=== PATIENT | female | born 1990 | race Caucasian/White ===

== ENCOUNTER 2020-01-25 18:26 | Outpatient (REF) | payer BC, SELFPAY ==
[2020-01-25 19:04] LABS: Anion Gap 12.8 mmol/L (3-11); BUN 15 mg/dL (7-18); CO2 23.2 mmol/L (21.0-32.0); CREATININE 0.86 mg/dL (0.55-1.02); Calcium 8.8 mg/dL (8.5-10.1); Calculated LDL 140 mg/dL (<100); Chloride 103 mmol/L (98-107); Cholesterol 198 mg/dL (<200); Glucose 94 mg/dL (74-106); HDL Cholesterol 45 mg/dL (40-60); Potassium 4.4 mmol/L (3.5-5.1); Sodium 139 mmol/L (136-145); Triglyceride 65 mg/dL (<150)
== END 2020-01-25 18:46 ==
LOC: NCHCN 18:26
PROVIDERS: Visit Provider Nurse Practitioner Family
DX: Z00.00 Encounter for general adult medical examination without abnormal findings (principal); Z13.220 Encounter for screening for lipoid disorders; Z13.228 Encounter for screening for other metabolic disorders
CPT/HCPCS: 80048; 80061

== ENCOUNTER 2020-12-21 17:54 | Outpatient (REF) | payer BC, SELFPAY ==
--- NOTE | 2020-12-21 15:00 | PAPFT_PTH ---
PATIENT: Kandice Durán LOC: [facility] U#:[id number] AGE/SX: 30/F ROOM: RE12/21/[address]: JOSE ANGEL Beard : 1990 BED: DIS: 12/21/2020 SPEC #: [id number] RECD: 12/21/20 18:15 STATUS: PENNY REQ #: [id number] CHERELLE: 12/21/20 15:[address]: Aleena Barksdale DEPT: [facility] Cytology RECD BY: Ny Ortiz ENTERED: 12/21/20 18:16 SP TYPE: PAPFT MICHAEL DR: Carla Local Tissues: 1 - CX/ENDOCX FOR PAP SMEARS Procedures: PAP THIN PREP/UVM Screening HPV DNA PROBE Comments: [id number]
== END 2020-12-21 17:55 | disposition home or self-care (01) ==
LOC: LBN 17:54
PROVIDERS: Visit Provider Nurse Practitioner Family
DX: Z12.4 Encounter for screening for malignant neoplasm of cervix (principal); Z11.51 Encounter for screening for human papillomavirus (HPV)
CPT/HCPCS: 88142; 87624

== ENCOUNTER 2021-11-15 03:02 | Outpatient (CLI) | payer BC, SELFPAY ==
[2021-11-15 15:49] LABS: TSH (W/Ref FT4) 2.35 uIU/mL (0.36-3.74)
[2021-11-15 21:23] LABS: Estradiol 359 pg/mL (See Note)
[2021-11-15 22:07] LABS: FSH 10.5 mIU/mL (See Note); LH 46.6 mIU/mL (See Note); Prolactin 19.5 ng/mL (See Table)
[2021-11-17 14:06] LABS: Antimullerian Hormone 5.5 ng/mL (0.58-8.1)
== END 2021-11-15 03:03 | disposition home or self-care (01) ==
LOC: LBO 03:04
PROVIDERS: Visit Provider Obstetrics & Gynecology Gynecology
DX: N93.9 Abnormal uterine and vaginal bleeding, unspecified (principal)
CPT/HCPCS: 36415; 82670; 83001; 83002; 83520; 84146; 84443

== ENCOUNTER → 2022-07-10 02:11 | Outpatient (CLI) | payer BC, SELFPAY ==
--- NOTE | 2022-07-10 08:30 | DI.US_ITS ---
Exam(s) US SONOHYSTEROGRAM EXAM: US SONOHYSTEROGRAM CLINICAL HISTORY: to assess fallopian tube patency,abnl uterine bleeding,desires , TECHNIQUE: Ultrasound performed using standard protocol. COMPARISON: No exams were available for comparison FINDINGS: Ultrasound guidance was provided for sonohysterogram performed by Dr. Cabrales. Please see Dr. Alex murguia's procedure note. IMPRESSION: DATA REPOSITORY:
--- NOTE | 2022-07-10 19:20 | OPPNE_ITS ---
Date of service: 07/10/22 Time of Service: 19:29 Procedure Note Date of procedure: 07/10/22 Procedure: Sonohysterogram Surgeon/Proceduralist/Physician: Lachelle Cabrales Procedure Indications: 32-year-old G0 female with primary infertility currently undergoing evaluation which includes tubal patency. I discussed with the patient the possibility of performing a sonohysterogram in place of a hysterosalpingogram to evaluate tubal patency. She was agreeable to the plan. Procedure Description: After verbal and written consent was obtained the procedure was performed in Diagnostic Imaging with the assistance of an enterprise analyst. Initial transvaginal ultrasound was performed with inspection of the uterus adnexa and pelvis. 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 With the septum occupying the fundal portion of the uterus. [place] speculum was placed in the vagina the cervix was cleansed with Betadine and the HSG catheter was inserted through through the cervix and the catheter balloon inflated. Instruments were then removed from the vagina and the endovaginal probe was then inserted and under direct visualization 20 cc of normal saline was instilled into the uterine cavity with excellent visualization the entire cavity. Once again imaging confirmed a bicornuate uterus. There is a small uterus and the posterior myometrium. After period of 5 minutes we were able to observe fluid within the pelvic cavity primarily along the anterior cul-de-sac and a small amount in the posterior cul-de-sac. The endovaginal probe was then removed, the HSG catheter bulb deflated and the catheter removed without difficulty. Patient sustained moderate to severe cramping during the procedure the cramping improved after the procedure was completed she was able to be discharged to home with instructions for follow-up.
== END ==
PROVIDERS: Visit Provider Obstetrics & Gynecology Gynecology
DX: N93.9 Abnormal uterine and vaginal bleeding, unspecified (principal); Z31.9 Encounter for procreative management, unspecified
CPT/HCPCS: 58340; 76831

== ENCOUNTER 2023-09-05 01:36 | Outpatient (CLI) | payer BC, SELFPAY ==
[2023-09-05 16:36] LABS: HCT 39.7 % (36.0-46.0); HGB 13.8 g/dL (11.2-15.7); MCH 32.7 pg (27.0-33.0); MCHC 34.8 % (32.0-36.0); MCV 94 fL (80-95); Platelet Count 265 10^3/uL (130-400); RBC 4.22 10^6/uL (3.93-5.22); RDW 11.6 % (11.7-14.6); RDW-SD 40.2 fL; WBC 9.47 10^3/uL (4.4-10.8)
[2023-09-05 17:04] LABS: ALT 109 U/L (14-59); AST 44 U/L (15-37); Albumin 3.9 g/dL (3.4-5.0); Alkaline Phosphatase 73 U/L (46-116); Anion Gap 8.9 mmol/L (3-11); BUN 13 mg/dL (7-18); Bilirubin, Total 0.5 mg/dL (0.2-1.0); CO2 24.1 mmol/L (21.0-32.0); Calcium 8.9 mg/dL (8.5-10.1); Chloride 101 mmol/L (98-107); Estimated GFR 75.34 (mL/min/1.73m2); Glucose 97 mg/dL (74-106); Potassium 3.7 mmol/L (3.5-5.1); Sodium 134 mmol/L (136-145); Total Protein 8.3 g/dL (6.4-8.2)
[2023-09-05 17:15] LABS: Vitamin D 25 Total 25.1 ng/mL (30-100)
[2023-09-05 17:23] LABS: FREE T4 0.86 ng/dL (0.76-1.46)
[2023-09-08 09:45] LABS: Prolactin 6.3 ng/mL (See Note)
[2023-09-08 10:35] LABS: Hepatitis B Surface Ag Negative (Negative)
[2023-09-08 11:00] LABS: Hepatitis C Ab w Rflx HCV PCR Negative (Negative)
[2023-09-08 11:07] LABS: HIV-1/2 Ag & Ab Screen Negative (Negative)
[2023-09-08 11:37] LABS: Rubella IgG Ab (UVM) Negative (See Note); Varicella IgG Antibody Positive (See Note)
[2023-09-08 19:11] LABS: Antimullerian Hormone 5.2 ng/mL (0.15-7.5)
[2023-09-09 22:02] LABS: Syphilis IgG w/Reflex Nonreactive (Nonreactive)
[2023-09-13 17:23] LABS: Testosterone, Free 0.77 ng/dL (<0.13-1.00); Testosterone, Total 28 ng/dL (8-60)
== END 2023-09-05 01:37 | disposition home or self-care (01) ==
PROVIDERS: Visit Provider Obstetrics & Gynecology Gynecology
DX: N91.5 Oligomenorrhea, unspecified; Z31.9 Encounter for procreative management, unspecified
CPT/HCPCS: 36415; 80053; 82306; 84402; 84403; 85027; 86787; 86803; 86850; 86900; 86901; 87340; 87389; 83520; 84146; 84439; 84443; 86762; 86780

== ENCOUNTER → 2023-09-17 01:22 | Outpatient (CLI) | payer BC, SELFPAY ==
--- NOTE | 2023-09-17 07:45 | DI.RAD_ITS ---
Exam(s) RF HYSTEROSALPINGOGRAM EXAM: RF HYSTEROSALPINGOGRAM CLINICAL HISTORY: preconceptual eval,bicornuate uterus,oligomenorrhea,procreative,Q51.3,n91.5 TECHNIQUE: 2D and realtime digital imaging was performed. CONTRAST MATERIAL: Water soluble contrast was administered. COMPARISON: No exams were available for comparison FINDINGS: Fluoroscopically provided by the radiologist during hysterosalpingogram. The actual hysterosalpingog alice was performed by the walking dragline oiler. Senior Actuarial Analyst placed an end hole balloon tipped catheter in th e lower uterine segment. Contrast was injected under fluoroscopic guidance images obtained. The uterus fills normally, with no evidence of obvious contour abnormality, filling defect, septum, s tricture, nor obvious mass. The bilateral uterine tubes are normal and patent with normal rapid spill age of contrast into the peritoneum. IMPRESSION: Patent bilateral fallopian tubes. RADIATION DOSE DELIVERED: marcel Salvador=30.1 mGy
[2023-09-17] MEDS: Omnipaque 350 MG/ML 50 ML BTL IJ (11:32)
== END ==
PROVIDERS: Visit Provider Obstetrics & Gynecology Gynecology
DX: N91.5 Oligomenorrhea, unspecified (principal); Q51.3 Bicornate uterus; Z31.9 Encounter for procreative management, unspecified
CPT/HCPCS: 74740; Q9967

== ENCOUNTER 2023-09-17 14:42 | Outpatient (CLI) | payer BC, SELFPAY ==
[2023-09-17 12:12] LABS: ALT 174 U/L (14-59); AST 84 U/L (15-37); Albumin 4.1 g/dL (3.4-5.0); Alkaline Phosphatase 72 U/L (46-116); BUN 9 mg/dL (7-18); Bilirubin, Total 0.6 mg/dL (0.2-1.0); Calcium 9.7 mg/dL (8.5-10.1); Chloride 103 mmol/L (98-107); Estimated GFR 75.34 (mL/min/1.73m2); Glucose 127 mg/dL (74-106); Potassium 4.4 mmol/L (3.5-5.1); Sodium 142 mmol/L (136-145); TSH (W/Ref FT4) 1.99 uIU/mL (0.36-3.74); Total Protein 8.6 g/dL (6.4-8.2)
== END 2023-09-17 14:43 | disposition home or self-care (01) ==
LOC: LBO 14:43
PROVIDERS: Visit Provider Obstetrics & Gynecology Gynecology
DX: R79.89 Other specified abnormal findings of blood chemistry (principal)
CPT/HCPCS: 36415; 80053; 84443

== ENCOUNTER 2023-12-03 01:31 | Outpatient (CLI) | payer BC, SELFPAY ==
[2023-12-03 15:27] LABS: Panorama Kit Sent via Fed Ex
[2023-12-03 15:31] LABS: Abs Immature Grans 0.05 10^3/uL (0.0-0.06); Absolute Basophil Count 0.01 10^3/uL (0.0-0.2); Absolute Eosinophil Count 0.03 10^3/uL (0.0-0.7); Absolute Lymphocyte Count 1.97 10^3/uL (1.2-3.4); Absolute Monocyte Count 0.47 10^3/uL (0.1-0.8); Basophils % 0.1; Eosinophils % 0.3; HCT 33.1 % (36.0-46.0); HGB 11.8 g/dL (11.2-15.7); Immature Grans % 0.5; Lymphocytes % 20.2; MCH 32.6 pg (27.0-33.0); MCHC 35.6 % (32.0-36.0); MCV 91 fL (80-95); MPV 9.9 fL (8.0-11.0); Monocytes % 4.8; Neutrophils % 74.1; Platelet Count 275 10^3/uL (130-400); RBC 3.62 10^6/uL (3.93-5.22); RDW 11.3 % (11.7-14.6); RDW-SD 37.9 fL; WBC 9.73 10^3/uL (4.4-10.8)
[2023-12-03 15:45] LABS: Glucose,1 Hr (Glucola) 150 mg/dL (80-140)
[2023-12-03 16:04] LABS: ALT 69 U/L (14-59); AST 38 U/L (15-37); Albumin 3.5 g/dL (3.4-5.0); Alkaline Phosphatase 73 U/L (46-116); Anion Gap 12.5 mmol/L (3-11); BUN 6 mg/dL (7-18); Bilirubin, Total 0.4 mg/dL (0.2-1.0); CO2 21.5 mmol/L (21.0-32.0); CREATININE 0.7 mg/dL (0.55-1.02); Calcium 9.3 mg/dL (8.5-10.1); Chloride 102 mmol/L (98-107); Estimated GFR 115.59 (mL/min/1.73m2); Glucose 147 mg/dL (74-106); Potassium 3.3 mmol/L (3.5-5.1); Sodium 136 mmol/L (136-145); TSH (W/Ref FT4) 2.83 uIU/mL (0.36-3.74)
[2023-12-04 09:12] LABS: Rubella IgG Ab (UVM) Negative (See Note); Varicella IgG Antibody Positive (See Note)
[2023-12-04 09:49] LABS: Hepatitis C Ab w Rflx HCV PCR Negative (Negative)
[2023-12-04 09:59] LABS: HIV-1/2 Ag & Ab Screen Negative (Negative)
[2023-12-04 11:17] LABS: Hepatitis B Surface Ag Negative (Negative)
[2023-12-05 13:08] LABS: Syphilis IgG w/Reflex Nonreactive (Nonreactive)
== END 2023-12-03 01:32 | disposition home or self-care (01) ==
LOC: LBO 01:31
PROVIDERS: Visit Provider Advanced Practice Midwife
DX: O09.511 Supervision of elderly primigravida, first trimester (principal); O26.891 Other specified pregnancy related conditions, first trimester; R79.89 Other specified abnormal findings of blood chemistry; Z36.89 Encounter for other specified antenatal screening; Z3A.11 11 weeks gestation of pregnancy
CPT/HCPCS: 36415; 80053; 82950; 86787; 86803; 86850; 86900; 86901; 87340; 87389; 84443; 85025; 86762; 86780

== ENCOUNTER 2023-12-03 15:08 | Outpatient (REF) | payer BC, SELFPAY ==
[2023-12-03 16:37] LABS: COMMENT (LAB VIEW ONLY) 15.16 mg/dL
[2023-12-03 16:56] LABS: PROTEIN < 6.0 mg/dL
== END 2023-12-03 15:09 | disposition home or self-care (01) ==
LOC: LBN 15:08
PROVIDERS: Visit Provider Advanced Practice Midwife
DX: O13.1 Gestational [pregnancy-induced] hypertension without significant proteinuria, first trimester (principal); O09.521 Supervision of elderly multigravida, first trimester; O26.891 Other specified pregnancy related conditions, first trimester; R51.9 Headache, unspecified; Z3A.11 11 weeks gestation of pregnancy
CPT/HCPCS: 82565; 84156; 87086

== ENCOUNTER 2023-12-09 03:14 | Outpatient (CLI) | payer BC, SELFPAY ==
[2023-12-09 08:48] LABS: Iron 104 ug/dL (50-170); Total Iron Binding Capacity 342 ug/dL (250-450); Transferrin Sat 30 % (15-50)
[2023-12-09 09:06] LABS: Glucose 1 Hour 158 mg/dL
[2023-12-09 11:14] LABS: Glucose 3 Hour 80 mg/dL
[2023-12-10 13:55] LABS: ANA Interpretation Positive (Negative); ANA Titer Pattern 1:320 Speckled
[2023-12-11 12:17] LABS: Smooth Muscle Ab Screen Negative (Negative)
== END 2023-12-09 03:15 | disposition home or self-care (01) ==
PROVIDERS: Obstetrics & Gynecology Gynecology; Visit Provider Advanced Practice Midwife
DX: Z34.91 Encounter for supervision of normal pregnancy, unspecified, first trimester (principal); R79.89 Other specified abnormal findings of blood chemistry
CPT/HCPCS: 36415; 82951; 83540; 83550; 86038; 86255

== ENCOUNTER 2024-01-01 08:59 | Outpatient (REF) | payer BC, SELFPAY ==
[2024-01-02 15:32] LABS: Chlamydia Result Negative (Negative); GC Result Negative (Negative)
== END 2024-01-01 09:00 | disposition home or self-care (01) ==
LOC: LBN 08:59
PROVIDERS: PCP Student in an Organized Health Care Education/Training Program; Visit Provider Advanced Practice Midwife
DX: Z34.91 Encounter for supervision of normal pregnancy, unspecified, first trimester (principal)
CPT/HCPCS: 87491; 87591

== ENCOUNTER 2024-01-09 02:06 | Outpatient (CLI) | payer BC, SELFPAY ==
[2024-01-09 11:34] LABS: ALT 47 U/L (14-59); AST 22 U/L (15-37); Albumin 3.1 g/dL (3.4-5.0); Alkaline Phosphatase 73 U/L (46-116); Anion Gap 10.2 mmol/L (3-11); BUN 7 mg/dL (7-18); Bilirubin, Total 0.3 mg/dL (0.2-1.0); CO2 24.8 mmol/L (21.0-32.0); CREATININE 0.6 mg/dL (0.55-1.02); Calcium 9.1 mg/dL (8.5-10.1); Chloride 103 mmol/L (98-107); Estimated GFR 119.97 (mL/min/1.73m2); Glucose 84 mg/dL (74-106); Potassium 3.8 mmol/L (3.5-5.1); Sodium 138 mmol/L (136-145); Total Protein 7.3 g/dL (6.4-8.2)
== END 2024-01-09 02:07 | disposition home or self-care (01) ==
LOC: LBO 02:08
PROVIDERS: Advanced Practice Midwife; PCP Student in an Organized Health Care Education/Training Program; Visit Provider Obstetrics & Gynecology Gynecology
DX: R79.89 Other specified abnormal findings of blood chemistry (principal); Z34.92 Encounter for supervision of normal pregnancy, unspecified, second trimester
CPT/HCPCS: 36415; 80053; 84443

== ENCOUNTER 2024-01-30 14:49 | Outpatient (CLI) | payer BC, SELFPAY ==
[2024-01-31 13:53] LABS: Chlamydia Result Negative (Negative); GC Result Negative (Negative)
[2024-02-03 16:15] LABS: Specimen WB Whole Blood
[2024-02-10 17:35] LABS: Result Summary NEGATIVE; Specimen WB Whole Blood
== END 2024-01-30 14:50 | disposition home or self-care (01) ==
LOC: LBO 14:49
PROVIDERS: Advanced Practice Midwife; PCP Student in an Organized Health Care Education/Training Program; Visit Provider Obstetrics & Gynecology Gynecology
DX: Z34.92 Encounter for supervision of normal pregnancy, unspecified, second trimester (principal)
CPT/HCPCS: 36415; 81220; 81222; 81329; 87491; 87591

== ENCOUNTER → 2024-03-26 00:26 | Outpatient (CLI) | payer BC, SELFPAY ==
--- NOTE | 2024-03-26 07:30 | DI.US_ITS ---
Exam(s) US OB ROHINI WEIGHT EXAM: US OB ROHINI WEIGHT CLINICAL HISTORY: serial u/s for growth,HYPERTENSION,I10. TECHNIQUE: Transabdominal obstetrical ultrasound was performed. COMPARISON: No prior exams were available for comparison FINDINGS: There is a single viable intrauterine gestation with cardiac activity identified-141 bpm The fetus is presently in breech position . Amniotic fluid: There is a normal amount of amniotic fluid with an ROHINI of 16.51cm. Placental location: The placenta is anterior grade 1,with no evidence of placenta previa. Dating parameters place this at approximately 26 weeks and 6 days gestational age, implying WILLIAM of 06/26/2024. BPD measures 26 weeks and 2 days HC measures 27 weeks and 3 days AC measures 27 weeks and 2 days FL measures 26 weeks and 2 days Estimated weight is 993 gm-2 pounds 3 ounces Fetus is at the 15th percentile on the Hadlock scale. anatomy: Not performed today IMPRESSION:: Viable intrauterine gestation, as described above. Estimated at 26 weeks and 6 days [facility] WILLIAM of 06/26/2024. DATA REPOSITORY:
== END ==
PROVIDERS: PCP Student in an Organized Health Care Education/Training Program; Visit Provider Obstetrics & Gynecology Gynecology
DX: Z34.92 Encounter for supervision of normal pregnancy, unspecified, second trimester (principal); I10 Essential (primary) hypertension; Z3A.27 27 weeks gestation of pregnancy
CPT/HCPCS: 76816

== ENCOUNTER 2024-03-26 02:20 | Outpatient (CLI) | payer BC, SELFPAY ==
[2024-03-26 13:47] LABS: HCT 30.6 % (36.0-46.0); HGB 10.5 g/dL (11.2-15.7); MCH 31.6 pg (27.0-33.0); MCHC 34.3 % (32.0-36.0); MCV 92 fL (80-95); MPV 9.2 fL (8.0-11.0); Platelet Count 256 10^3/uL (130-400); RBC 3.32 10^6/uL (3.93-5.22); RDW-SD 40.3 fL; WBC 10.79 10^3/uL (4.4-10.8)
[2024-03-26 14:08] LABS: ALT 31 U/L (14-59); AST 16 U/L (15-37); Albumin 2.9 g/dL (3.4-5.0); Alkaline Phosphatase 73 U/L (46-116); BUN 7 mg/dL (7-18); Bilirubin, Total 0.3 mg/dL (0.2-1.0); CREATININE 0.6 mg/dL (0.55-1.02); Calcium 9.8 mg/dL (8.5-10.1); Chloride 100 mmol/L (98-107); Estimated GFR 119.97 (mL/min/1.73m2); Glucose 88 mg/dL (74-106); Sodium 135 mmol/L (136-145); Total Protein 7.1 g/dL (6.4-8.2)
== END 2024-03-26 02:21 | disposition home or self-care (01) ==
LOC: LBO 02:34
PROVIDERS: PCP Student in an Organized Health Care Education/Training Program; Visit Provider Obstetrics & Gynecology Gynecology
DX: Z34.92 Encounter for supervision of normal pregnancy, unspecified, second trimester (principal); I10 Essential (primary) hypertension; Z3A.27 27 weeks gestation of pregnancy
CPT/HCPCS: 36415; 80053; 85027

== ENCOUNTER → 2024-04-27 01:10 | Outpatient (CLI) | payer BC, SELFPAY ==
--- NOTE | 2024-04-27 11:15 | DI.US_ITS ---
Exam(s) US OB ROHINI WEIGHT EXAM: US OB ROHINI WEIGHT CLINICAL HISTORY: growth,GESTATIONAL DIABETES,o24.419. TECHNIQUE: Transabdominal obstetrical ultrasound was performed. COMPARISON: US US OB ROHINI WEIGHT from 03/26/2024 FINDINGS: There is a single viable intrauterine gestation with cardiac activity identified-152 bpm The fetus is presently in breech position . Amniotic fluid: There is a low normal amount of amniotic fluid with an ROHINI of 9.1cm. Placental location: The placenta is anterior grade 1,with no evidence of placenta previa.Distance fro m the tip of placenta to the internal cervical os is 10.[address] this at approximately 31 weeks and 3 days gestational age, implying WILLIAM of 06/26/2024. BPD measures 30 weeks and 1 day HC measures 31 weeks and 6 days AC measures 31 weeks and 5 days FL measures 31 weeks and 5 days Estimated weight is 1795 gm-3 pounds, 9 ounces Fetus is at the 23rd percentile on the Hadlock scale. IMPRESSION:: Viable 3rd trimester gestation, as described above. Presently in breech position Anterior placenta with no evidence of placenta previa. There is a low normal amount of amniotic fluid DATA REPOSITORY:
== END ==
PROVIDERS: PCP Student in an Organized Health Care Education/Training Program; Visit Provider Obstetrics & Gynecology
DX: O24.419 Gestational diabetes mellitus in pregnancy, unspecified control (principal)
CPT/HCPCS: 76816

== ENCOUNTER 2024-05-26 16:09 | Outpatient (CLI) | payer BC, SELFPAY ==
[2024-05-26 16:23] VITALS: BP 145/91; PULSE 115; RESP 18; TEMP 36.7; O2SAT 97
[2024-05-26 16:51] LABS: HGB 10.7 g/dL (11.2-15.7); MCH 30.3 pg (27.0-33.0); MCHC 34.5 % (32.0-36.0); MCV 88 fL (80-95); MPV 9.5 fL (8.0-11.0); Platelet Count 270 10^3/uL (130-400); RBC 3.53 10^6/uL (3.93-5.22); RDW 13.2 % (11.7-14.6); RDW-SD 42.3 fL
[2024-05-26 16:56] VITALS: BP 149/89; PULSE 112
[2024-05-26 17:09] LABS: ALT 21 U/L (14-59); AST 12 U/L (15-37); Albumin 2.8 g/dL (3.4-5.0); Alkaline Phosphatase 100 U/L (46-116); Anion Gap 14.1 mmol/L (3-11); BUN 7 mg/dL (7-18); Bilirubin, Total 0.28 mg/dL (0.2-1.0); CO2 20.9 mmol/L (21.0-32.0); CREATININE 0.6 mg/dL (0.55-1.02); Calcium 9.7 mg/dL (8.5-10.1); Chloride 104 mmol/L (98-107); Estimated GFR 119.97 (mL/min/1.73m2); Glucose 105 mg/dL (74-106); Potassium 3.5 mmol/L (3.5-5.1); Sodium 139 mmol/L (136-145); Uric Acid 4.8 mg/dL (2.6-6.0)
--- NOTE | 2024-05-26 17:19 | W.OBNST ---
Date of service: 05/26/24 Time of Service: 07:36 NST Evaluation Reason for NST Reasons for Nonstress Test: GESTATIONAL HYPERTENSION Test and Monitor Explained Test/Monitor Explained: Test Explained, Monitor Explained and Patient Verbalized Understanding Vital Signs Blood Pressure: 149/97 Urine Results Urine Protein: Negative NST Information Date on Monitor: 05/26/24 Time on Monitor: 17:00 Date off Monitor: 05/26/24 Time off Monitor: 18:00 Total Time on Monitor: 60 NST Interventions: PO Hydration Contraction Frequency: none Note Ultrasound Done: N/A. NST Note Note: Pt evaluated on for elevated BP. Initial BP on arrival to as above. Repeat BPs: 145/91, 149/87, 137/85. P/C ratio: 0.6. 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 Take BPs 2x/day. Call me in am with morning BP reading. NST Reviewed and Verified by: Lachelle Cabrales
[2024-05-26 17:45] VITALS: BP 137/85; PULSE 110
[2024-05-26 17:49] LABS: COMMENT (LAB VIEW ONLY) 20.26 mg/dL; Prot/Crea Ur Ratio 0.69
[2024-05-26 17:51] VITALS: BP 137/85; PULSE 110; TEMP 36.4
[2024-05-27 07:41] VITALS: BP 149/97
== END 2024-05-26 18:02 ==
LOC: BCD 16:10 → OBS 16:15
PROVIDERS: PCP Student in an Organized Health Care Education/Training Program; Visit Provider Obstetrics & Gynecology Gynecology
DX: O13.3 Gestational [pregnancy-induced] hypertension without significant proteinuria, third trimester (principal); Z3A.36 36 weeks gestation of pregnancy
CPT/HCPCS: 59025; 36415; 80053; 85027; 86850; 86900; 86901; 82565; 84156; 84550; 87081

== ENCOUNTER 2024-05-28 07:13 | Outpatient (CLI) | payer BC, SELFPAY ==
[2024-05-28 10:01] VITALS: BP 133/85; PULSE 109; TEMP 36.5
[2024-05-28 10:31] LABS: HCT 31.5 % (36.0-46.0); HGB 10.6 g/dL (11.2-15.7); MCH 30.2 pg (27.0-33.0); MCHC 33.7 % (32.0-36.0); MCV 90 fL (80-95); MPV 9.3 fL (8.0-11.0); Platelet Count 239 10^3/uL (130-400); RBC 3.51 10^6/uL (3.93-5.22); RDW 13.2 % (11.7-14.6); RDW-SD 42.9 fL; WBC 8.56 10^3/uL (4.4-10.8)
[2024-05-28 10:39] VITALS: BP 133/85; PULSE 109
[2024-05-28 10:49] VITALS: BP 134/90; PULSE 98
[2024-05-28 10:59] VITALS: BP 128/85; PULSE 100
[2024-05-28 11:04] LABS: ALT 19 U/L (14-59); AST 16 U/L (15-37); Albumin 2.9 g/dL (3.4-5.0); Alkaline Phosphatase 106 U/L (46-116); BUN 6 mg/dL (7-18); Bilirubin, Total 0.44 mg/dL (0.2-1.0); CREATININE 0.7 mg/dL (0.55-1.02); Calcium 9.5 mg/dL (8.5-10.1); Chloride 104 mmol/L (98-107); Estimated GFR 114.88 (mL/min/1.73m2); Glucose 94 mg/dL (74-106); Potassium 3.7 mmol/L (3.5-5.1); Sodium 138 mmol/L (136-145); Total Protein 7.2 g/dL (6.4-8.2)
[2024-05-28 11:09] VITALS: BP 130/85; PULSE 101
[2024-05-28 11:14] LABS: COMMENT (LAB VIEW ONLY) 67.53 mg/dL; PROTEIN 14.1 mg/dL
--- NOTE | 2024-05-28 13:13 | W.OBNST ---
Date of service: 05/28/24 Time of Service: 11:00 NST Evaluation Reason for NST Reasons for Nonstress Test: GESTATIONAL HYPERTENSION and OTHER, SEE COMMENT Reason for NST Other: Preeclampsia Gestational Age Gestational Age in Weeks and Days: 36 Weeks and 4Days Test and Monitor Explained Test/Monitor Explained: Test Explained, Monitor Explained and Patient Verbalized Understanding Vital Signs Blood Pressure: 133/85 Pulse: 109 Temperature: 97.7 F Urine Results Urine Protein: Positive Urine Ketones: Negative Urine Glucose: Negative Urine Blood: Negative NST Information Date on Monitor: 05/28/24 Time on Monitor: 10:25 Date off Monitor: 05/28/24 Time off Monitor: 11:27 Total Time on Monitor: 62 NST Interventions: PO Hydration Contraction Frequency: 0 NST Evaluation Patient States Movement: Present FHR Baseline: 140 Variability: Moderate 6-25 bpm Accelerations: 15x15 Decelerations: None NST Results: Reactive Note Ultrasound Done: N/A. NST Note Note: Pt here for NST, repeat labs, BP check due to new dx of PEC/GHTN 2 days ago. Her PCR was 0.6 then. Today her BPs were 130s/80s. Her urine dip was only faintly positive for protein so another PCR was done which was 0.2. She denies any s/s of PEC. She says she feels well. She reports that at her last visit she had a lot of stressful meetings at work and drank a lot of coffee that day and wonders if that could have influenced her results. We discussed this and reasons to call over the weekend. She was planning cervical ripening friday evening for a 37wk induction. She will plan to come in at 4pm and see what her BPs are and she can discuss further with Dr. Cabrales based on the results if it is best to proceed with the induction as planned vs waiting another week if the labs and BPs look very good. She will come prepared for an induction. NST Reviewed and Verified by: Graciela Molina
[2024-05-28 13:18] VITALS: BP 133/85; PULSE 109; TEMP 36.5
== END 2024-05-28 11:56 ==
LOC: BCD 07:14 → OBS 09:55
PROVIDERS: Obstetrics & Gynecology; PCP Student in an Organized Health Care Education/Training Program; Visit Provider Obstetrics & Gynecology Gynecology
DX: O14.93 Unspecified pre-eclampsia, third trimester (principal); Z3A.36 36 weeks gestation of pregnancy
CPT/HCPCS: 59025; 36415; 80053; 85027; 82565; 84156

== ENCOUNTER 2024-05-31 07:36 | Outpatient (CLI) | payer BC, SELFPAY ==
[2024-05-31] VITALS (16 sets, daily range): BP systolic 126–149; BP diastolic 66–96; PULSE 85–114; TEMP 37.2
[2024-05-31 16:37] LABS: HCT 31.6 % (36.0-46.0); HGB 10.5 g/dL (11.2-15.7); MCH 29.7 pg (27.0-33.0); MCHC 33.2 % (32.0-36.0); MCV 90 fL (80-95); MPV 9.4 fL (8.0-11.0); Platelet Count 256 10^3/uL (130-400); RBC 3.53 10^6/uL (3.93-5.22); RDW 13.1 % (11.7-14.6); RDW-SD 42.8 fL; WBC 8.74 10^3/uL (4.4-10.8)
[2024-05-31 17:04] LABS: ALT 23 U/L (14-59); AST 15 U/L (15-37); Albumin 2.7 g/dL (3.4-5.0); Alkaline Phosphatase 102 U/L (46-116); Anion Gap 9.9 mmol/L (3-11); BUN 6 mg/dL (7-18); Bilirubin, Total 0.33 mg/dL (0.2-1.0); CO2 22.1 mmol/L (21.0-32.0); CREATININE 0.6 mg/dL (0.55-1.02); Calcium 9.6 mg/dL (8.5-10.1); Chloride 105 mmol/L (98-107); Estimated GFR 119.23 (mL/min/1.73m2); Glucose 85 mg/dL (74-106); Potassium 3.7 mmol/L (3.5-5.1); Sodium 137 mmol/L (136-145); Total Protein 6.9 g/dL (6.4-8.2)
[2024-05-31 17:43] LABS: COMMENT (LAB VIEW ONLY) 9.88 mg/dL; PROTEIN < 6.0 mg/dL
[2024-06-23 19:52] VITALS: BP 142/96; PULSE 111; TEMP 37.2
--- NOTE | 2024-06-23 19:52 | W.OBNST ---
Date of service: 06/23/24 Time of Service: 19:52 NST Evaluation Reason for NST Reasons for Nonstress Test: GESTATIONAL HYPERTENSION Gestational Age Gestational Age in Weeks and Days: 38 Weeks and 4Days Test and Monitor Explained Test/Monitor Explained: Test Explained, Monitor Explained and Patient Verbalized Understanding Vital Signs Blood Pressure: 142/96 Pulse: 111 Temperature: 99.0 F NST Information Date on Monitor: 05/31/24 Time on Monitor: 16:03 Date off Monitor: 05/31/24 Time off Monitor: 17:52 Total Time on Monitor: 109 NST Interventions: PO Hydration NST Evaluation Patient States Movement: Present FHR Baseline: 150 Variability: Moderate 6-25 bpm Accelerations: 15x15 Decelerations: None NST Results: Reactive Note Ultrasound Done: N/A. NST Note Note: Urine protein/creatine ratio obtained and was too low to calculate. This is in contradiction to the previous result of 6 at last visit. Plan to not induce at this time. Will continue to follow. NST Reviewed and Verified by: Lachelle Cabrales
== END 2024-05-31 18:25 ==
LOC: BCD 08:48 → OBS 15:54
PROVIDERS: PCP Student in an Organized Health Care Education/Training Program; Visit Provider Obstetrics & Gynecology Gynecology
DX: O13.3 Gestational [pregnancy-induced] hypertension without significant proteinuria, third trimester (principal); Z3A.38 38 weeks gestation of pregnancy
CPT/HCPCS: 59025; 80053; 85027; 82565; 84156

== ENCOUNTER 2024-06-02 08:36 | Outpatient (REF) | payer BC, SELFPAY ==
[2024-06-02 10:29] LABS: PROTEIN < 6.0 mg/dL (0.0-11.9)
[2024-06-02 10:30] LABS: Total Volume 4825 ml
== END 2024-06-02 08:37 | disposition home or self-care (01) ==
LOC: LBN 08:36
PROVIDERS: PCP Student in an Organized Health Care Education/Training Program; Visit Provider Obstetrics & Gynecology Gynecology
DX: I10 Essential (primary) hypertension (principal); Z34.93 Encounter for supervision of normal pregnancy, unspecified, third trimester; Z3A.37 37 weeks gestation of pregnancy
CPT/HCPCS: 81050; 84155

== ENCOUNTER 2024-06-04 13:11 | Outpatient (CLI) | payer BC, SELFPAY ==
[2024-06-04 14:10] VITALS: BP 129/83; PULSE 78; TEMP 36.8
[2024-06-04 14:44] VITALS: BP 128/83; PULSE 109
--- NOTE | 2024-06-04 16:32 | W.OBNST ---
Date of service: 06/04/24 Time of Service: 16:32 NST Evaluation Reason for NST Reasons for Nonstress Test: GESTATIONAL HYPERTENSION Gestational Age Gestational Age in Weeks and Days: 37 Weeks and 0Days Test and Monitor Explained Test/Monitor Explained: Test Explained Vital Signs Blood Pressure: 129/83 Pulse: 78 Temperature: 98.2 F Urine Results Urine Protein: Negative Urine Ketones: Negative Urine Glucose: Negative Urine Blood: Negative NST Information Date on Monitor: 06/04/24 Time on Monitor: 14:20 NST Interventions: None Contraction Frequency: none NST Evaluation Patient States Movement: Present Variability: Moderate 6-25 bpm Accelerations: 15x15 Decelerations: None NST Results: Reactive Note Ultrasound Done: N/A. NST Note Note: Category 1, reactive NST. Blood pressure stable. Continue to monitor. Rest at home. Follow-up for in person visit 06/08/2023 NST Reviewed and Verified by: Deepthi Glaser
[2024-06-04 16:33] VITALS: BP 129/83; PULSE 78; TEMP 36.8
== END 2024-06-04 14:59 | disposition home health service (06) ==
LOC: BCD 13:11 → OBS 14:08
PROVIDERS: PCP Student in an Organized Health Care Education/Training Program; Visit Provider Obstetrics & Gynecology
DX: O13.3 Gestational [pregnancy-induced] hypertension without significant proteinuria, third trimester (principal); Z3A.37 37 weeks gestation of pregnancy
CPT/HCPCS: 59025

== ENCOUNTER 2024-06-08 08:54 | Outpatient (CLI) | payer BC, SELFPAY ==
[2024-06-08 13:33] VITALS: BP 123/89; PULSE 97; TEMP 36.7
[2024-06-08 13:45] VITALS: BP 123/89; PULSE 102
[2024-06-08 13:55] VITALS: BP 125/89; PULSE 97
[2024-06-08 15:27] VITALS: BP 123/89; PULSE 97; TEMP 36.7
--- NOTE | 2024-06-08 15:27 | W.OBNST ---
Date of service: 06/08/24 Time of Service: 15:27 NST Evaluation Reason for NST Reasons for Nonstress Test: GESTATIONAL HYPERTENSION Gestational Age Gestational Age in Weeks and Days: 38 Weeks and 1Days Test and Monitor Explained Test/Monitor Explained: Test Explained, Monitor Explained and Patient Verbalized Understanding Vital Signs Blood Pressure: 123/89 Pulse: 97 Temperature: 98.1 F Urine Results Urine Protein: Negative Urine Ketones: Negative Urine Glucose: Negative Urine Blood: Negative NST Information Date on Monitor: 06/08/24 Time on Monitor: 13:31 Date off Monitor: 06/08/24 Time off Monitor: 14:00 Total Time on Monitor: 29 NST Interventions: None Contraction Frequency: 0 NST Evaluation Patient States Movement: Present FHR Baseline: 155 Variability: Moderate 6-25 bpm Accelerations: 15x15 Decelerations: None NST Results: Reactive Note Ultrasound Done: N/A. NST Note Note: Category 1, reactive NST. Stable blood pressure. No proteinuria. Labor induction is planned for 39 weeks. NST Reviewed and Verified by: Deepthi Glaser
== END 2024-06-08 14:23 ==
LOC: BCD 08:55 → OBS 13:27
PROVIDERS: PCP Student in an Organized Health Care Education/Training Program; Visit Provider Obstetrics & Gynecology
DX: O13.3 Gestational [pregnancy-induced] hypertension without significant proteinuria, third trimester (principal); Z3A.38 38 weeks gestation of pregnancy
CPT/HCPCS: 59025

== ENCOUNTER 2024-06-11 06:39 | Outpatient (CLI) | payer BC, SELFPAY ==
[2024-06-11 08:08] VITALS: BP 145/90; PULSE 88; TEMP 36.8
[2024-06-11 08:22] VITALS: BP 145/90; PULSE 88
[2024-06-11 08:48] VITALS: BP 145/95; PULSE 97
[2024-06-11 08:51] LABS: Absolute Basophil Count 0.02 10^3/uL (0.0-0.2); Absolute Eosinophil Count 0.07 10^3/uL (0.0-0.7); Absolute Lymphocyte Count 1.48 10^3/uL (1.2-3.4); Absolute Monocyte Count 0.46 10^3/uL (0.1-0.8); Absolute Neutrophil Count 6.98 10^3/uL (1.2-6.7); Basophils % 0.2 %; Eosinophils % 0.8 %; HCT 32.9 % (36.0-46.0); HGB 10.9 g/dL (11.2-15.7); Immature Grans % 1.1 %; Lymphocytes % 16.2 %; MCH 29.5 pg (27.0-33.0); MCHC 33.1 % (32.0-36.0); MCV 89 fL (80-95); MPV 9.5 fL (8.0-11.0); Neutrophils % 76.7 %; Platelet Count 248 10^3/uL (130-400); RBC 3.69 10^6/uL (3.93-5.22); RDW 13.4 % (11.7-14.6); RDW-SD 43.8 fL; WBC 9.11 10^3/uL (4.4-10.8)
[2024-06-11 09:10] LABS: ALT 24 U/L (14-59); AST 12 U/L (15-37); Albumin 2.8 g/dL (3.4-5.0); Alkaline Phosphatase 112 U/L (46-116); Anion Gap 8.4 mmol/L (3-11); BUN 6 mg/dL (7-18); Bilirubin, Total 0.32 mg/dL (0.2-1.0); CO2 24.6 mmol/L (21.0-32.0); CREATININE 0.6 mg/dL (0.55-1.02); Chloride 104 mmol/L (98-107); Estimated GFR 119.23 (mL/min/1.73m2); Glucose 95 mg/dL (74-106); Potassium 3.8 mmol/L (3.5-5.1); Sodium 137 mmol/L (136-145)
[2024-06-11 09:20] LABS: COMMENT (LAB VIEW ONLY) 17.65 mg/dL; PROTEIN 6.1 mg/dL; Prot/Crea Ur Ratio 0.34
--- NOTE | 2024-06-11 09:51 | W.OBNST ---
Date of service: 06/11/24 Time of Service: 09:51 NST Evaluation Reason for NST Reasons for Nonstress Test: GESTATIONAL HYPERTENSION Gestational Age Gestational Age in Weeks and Days: 38 Weeks and 4Days Test and Monitor Explained Test/Monitor Explained: Test Explained, Monitor Explained and Patient Verbalized Understanding Vital Signs Blood Pressure: 145/90 Pulse: 88 Temperature: 98.2 F NST Information Date on Monitor: 06/11/24 Time on Monitor: 08:12 NST Interventions: PO Hydration NST Evaluation Patient States Movement: Present FHR Baseline: 140 Variability: Moderate 6-25 bpm Accelerations: 15x15 Decelerations: None NST Results: Reactive Note Ultrasound Done: ROHINI (HTN) Total ROHINI: 4.6 Other Pertinent Findings: Presentation (cephalic) Coding for ROHINI w/NST: Completed Exam and Presentation Coding for Presentation w/NST: Completed Exam. NST Note Note: Patient seen for testing. Overall she is doing well. She denies headache or visual changes. Cervical Exam cervix is 50%, closed, -3 station. Transabdominal ultrasound was performed to confirm ROHINI which is 4.6 and fetus is in the vertex position. She did have elevated blood pressure which was repeated at 145/95. Laboratory studies are normal with the exception of an elevated protein creatinine ratio at 0.36. Patient was discussed with Dr. Cabrales, we have saw the patient and plan for induction with cervical ripening starting today. She will represent this evening for onset of her induction. NST Reviewed and Verified by: Deepthi Glaser
[2024-06-11 09:53] VITALS: BP 145/90; PULSE 88; TEMP 36.8
== END 2024-06-11 09:50 | disposition other institution (70) ==
LOC: BCD 06:43 → OBS 08:07
PROVIDERS: Obstetrics & Gynecology; PCP Student in an Organized Health Care Education/Training Program; Visit Provider Advanced Practice Midwife
DX: O13.3 Gestational [pregnancy-induced] hypertension without significant proteinuria, third trimester (principal); Z3A.38 38 weeks gestation of pregnancy
CPT/HCPCS: 59025; 76815; 36415; 80053; 82565; 84156; 85025

== ENCOUNTER 2024-06-11 18:31 | Inpatient (IN) | payer BC, SELFPAY ==
[2024-06-11] VITALS (7 sets, daily range): BP systolic 134–141; BP diastolic 89–93; PULSE 85–110; RESP 16–17; TEMP 37; O2SAT 99
--- NOTE | 2024-06-11 20:42 | W.PM.OBHPL1 ---
Date of service: 06/11/24 Time of Service: 20:43 Assessment and Plan Assessment and plan (1) Pre-eclampsia added to pre-existing hypertension: Status: Acute Assessment and plan: Labs obtained this am were nl CMP and CBC. Will not repeat Urine Protein Creatinine ratio (2) Encounter for induction of labor: Status: Acute Assessment and plan: Pt will begin Misoprostol cervical ripening. T&S on admission to . (3) Advanced maternal age (AMA) in : Status: Acute OB-HPI Labor/Delivery History of Present Illness Reason for Visit: induction Chief Complaint: Scheduled Induction of Labor Indication for Induction: Chronic Hypertension, Oligohydramnios and PreEclampsia. WILLIAM Calculator Estimated Delivery Date Method Current WG Current Estimate 06/21/24 Ultrasound #1 38w 4d Other Estimates 06/16/24 LMP (Uncertain) 39w 2d History of Present Expected Delivery Route/Plan - FOB- Solis Sarabia- (1 previous child now age 19, healthy) Doesn't want to know gender Rubella non immune, offer MMR PP Specific Issues/Plan 1. Subchorionic bleed. 3.9x1.7x0.7cm.11/19/23. Resolved @9wk 2. BMI 37 - early 1-hr GTT 150; 3 hour=elevated fasting (98); FCBG nl. - Has been checking fasting and rotating postprandials - all normal 3. Stage 1 HTN (BP elevated 140/90s at first 2 visits) - ASA daily. prot/creat ratio too low to calculate - U/S monthly for growth: 02/06/24 = 10%, 02/24/24 = 15%, 04/27/24: 23% @ 32w EGA. - 05/26/24. BP elevated. Inital PC ratio 0.6. Other labs nl. 06/02/24 24hr protein: undetectable. - Continue twice weekly NSTs and IOL 06/15/24. 4. AMA - cfDNA screen is low risk x5, undecided re: CF/SMA Neg/NL 5. Hx of LEEP 6. Migraines 7. Elevated CANDY & LFT's 09/04/23. U/S: NA fatty liver. Nl LFTs. 03/17/24. Nl. No change in care per MFM 8. Infertility x4yrs - HSG 09/04 9. Elevated TSH 09/04. Repeat TSH nl. 10. Possible bicornuate uterus and uterine fibroid noted in the past: not noted on MFM sono. - Assessment: History Updated Narrative: Pt presents for cervical ripening with planned Oxytocin augmentation of labor for preeclampsia superimposed on chronic HTN at 38w4d EGA. 05/26/24. Patient had elevated blood pressure while in the office and a protein creatinine ratio of 0.6. Repeat testing showed normal protein creatinine ratio and improvement in blood pressures once the patient had stopped working at her office and was working from home. She has had serial NSTs that have been reactive. 06/02/24 24-hour urine was performed and had a protein level that was undetectable. She has been checking her bps at home and were in a non-severe range. I discussed with the patient and 06/11/24. During a NST on the today her DBP was 95 and random protein creatinine ratio was 0.34. Her SVE was closed, 50%, -3 station. She was instructed to present for cervical ripening this evening. Informed Consent Informed Consent: Induction of Labor Review of Systems All systems reviewed & are unremarkable except as noted in HPI and below Constitutional Constitutional: Denies headache(s) and Denies poor appetite ENT Ears, Nose, Mouth, and Throat: Denies headache(s) Cardiovascular Cardiovascular: Reports system reviewed and no additional complaints, except as documented Respiratory Respiratory: Reports system reviewed and no additional complaints, except as documented Gastrointestinal Gastrointestinal: Denies abdominal pain, Denies change in bowel habits and Denies change in stool character Genitourinary Genitourinary: Reports system reviewed and no additional complaints, except as documented Musculoskeletal Musculoskeletal: Reports system reviewed and no additional complaints, except as documented Neurologic Neurologic: Denies headache(s) Psychiatric Psychiatric: Reports system reviewed and no additional complaints, except as documented PFSH All Active Problems (Updated 06/11/24 @ 21:07 by Lachelle Cabrales MD) Encounter for induction of labor (Acute) Pre-eclampsia added to pre-existing hypertension (Acute) Elevated antinuclear antibody (CANDY) level (Acute) Rubella non-immune status, antepartum (Acute) Elevated LFTs (Acute) Elevated TSH (Acute) Stage 1 hypertension (Acute) History of loop electrical excision procedure (LEEP) (Acute) Advanced maternal age (AMA) in (Acute) Fibroid uterus (Acute 02/02/15) 1cm posterior fundal fibroid. Bicornuate uterus (Acute) noted on pelvic u/s 06/2022. (Acute) Bleeding in early (Acute) BMI 37.0-37.9, adult (Acute) Medical History (Updated 06/11/24 @ 21:07 by Lachelle Cabrales MD) Early stage of History of infertility Low vitamin D level Oligomenorrhea 70 to 90 days between cyles. Abnormal uterine bleeding (AUB) Migraine (11/29/13) Chlamydial infection (06/15/12) Rx 06/2012 Anxiety Uterine fibroid Intial concern was that pt had bicornuate uterus. 1cm posterior fundal fibroid noted in pelvic u/s 10/2013. 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 Housing: other Details: [address] [place] [address] by her in-laws Communication Needs: None Education Level: college 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[employer] Sexually active: Yes Current gender identity: female What type of physical activity do you participate in: regular exercise Frequency: 5-6 times per week Seatbelt use: always Helmet use: Yes Drive intox or ride w/intox electric mule driver: No Do you feel safe at home: Yes Do you feel safe in your relationship?: Yes Female Reproductive History Menstrual control method: none History History 1 Para 0 Hx # Term Pregnancies 0 Multiple births 0 Hx # Pregnancies 0 Ectopic pregnancies 0 AB induced 0 Hx Number of Living Children 0 AB spontaneous 0 Meds Allergies and Home Medications Allergies Allergy/AdvReac Type Severity Reaction Status Date / Time No Known Allergies Allergy Verified 06/02/24 15:15 Home Medications ?Medication ?Instructions ?Recorded ?Confirmed ?Type prenat.vits,zac,lxr-tcbd-vtejx 1 tab PO DAILY 12/21/20 06/08/24 History cholecalciferol (vitamin D3) 25 25 mcg PO DAILY #90 tabs 09/17/23 06/08/24 Rx mcg (1,000 unit) tablet (Vitamin D3) folic acid 800 mcg tablet 0.8 mg PO DAILY 10/23/23 06/08/24 History aspirin 81 mg tablet,delayed 81 mg PO DAILY 12/03/23 06/08/24 History release (Adult Aspirin Regimen) blood sugar diagnostic (FreeStyle #100 ea 12/11/23 06/08/24 Rx Lite Strips) blood-glucose meter (FreeStyle #1 ea 12/11/23 06/08/24 Rx Lite Meter kit) lancets 28 gauge (FreeStyle #100 ea 12/11/23 06/08/24 Rx Lancets) Exam Physical Exam Vital signs: Temp Pulse Resp BP Pulse Ox 98.6 F 110 H 16 134/93 H 99 06/11/24 19:54 06/11/24 19:54 06/11/24 19:54 06/11/24 19:54 06/11/24 19:54 Vital Signs Reviewed: Yes Notable Details: VSS. Constitutional Constitutional: no acute distress Detailed Labor and Delivery Exam Medina Score: Cervical Points Exam 0 1 2 3 Dilation Closed 1-2cm 3-4 cm 5-6cm Effacement 0-30% 40-50% 60-70% 80% Consistency Firm Medium Soft Station -3 -2 -1,0 +1,+2 Position Posterior Mid Anterior Contraction Frequency(min): occasional Contraction Duration(sec): 40 Contraction Intensity: Mild Comments: SVE was not repeated since exam had been performed earlier today. Fetus A Monitor Accelerations: 15 X 15 Monitor Decelerations: None Variability: Moderate (6-25 BPM) Presentation: Cephalic Categories: Category I Est. Weight: 3600 lb Neck Exam Neck Exam: Normal Breast Exam Breast Exam: Not Done Respiratory Exam Respiratory Exam: Normal Cardiovascular Exam Cardiovascular Exam: Normal Abdominal Exam Abdominal Exam: Normal (no focal abdominal tenderness) Exam Exam: Not Done (performed earlier in the day.) Extremities Exam Extremities Exam: Normal (no LE edema. No clonus) Back/Spine/Pelvis Exam Back Exam: Not Done Skin Exam Skin Exam: Normal Neurological Exam Neurological Exam: Normal Psychiatric Exam Psychiatric Exam: Normal Risk Assessment Risk for Shoulder Dystocia Historical/Initial OB: POSITIVE FOR: Pre- BMI>30 Increased Risk?: No Risk for Pre-Eclampsia Date Initiated/Initials: 12/03/23 KM Yes, if one or more: POSTIVE FOR: Chronic HTN; NEGATIVE FOR: Hx Pre-E/Gest HTN, Multiple Gestation, Pre-gestational DM, Renal Disease, Systemic Lupus or APA Syndrome Yes, if 2 or more: POSITIVE FOR: Nulliparity, Age>= 35 yrs and BMI>30; NEGATIVE FOR: >10yr btwn pregnancies, ethinicty, Mother/Sister w/ Pre-E or Previous IUGR Risk for Post- Hemorrhage Initial: NEGATIVE FOR: Multiple Gestation, Previous PPH, Known Clotting Deficiency, Grand Multiparity or Anticoagulation Risks Reviewed Risks Reviewed Upon Admission: Yes
[2024-06-12] VITALS (64 sets, daily range): BP systolic 122–168; BP diastolic 71–90; PULSE 80–134; RESP 16; TEMP 36.8–37; O2SAT 82–100; BMI 38.6
[2024-06-12] MEDS: miSOPROStol 25 MCG TAB PO ×3 (00:40→11:59)
[2024-06-12] MEDS: Normal Saline Flush 10 ML SYR IVP (09:12)
--- NOTE | 2024-06-12 10:12 | PGE_ITS ---
Date of service: 06/12/24 Time of Service: 10:13 Informed Consent Informed Consent: Induction of Labor Assessment and Plan Assessment and plan (1) Encounter for induction of labor: Status: Acute Assessment and plan: Continue Misoprostol. Plan Oxytocin initiation this afternoon. (2) Pre-eclampsia added to pre-existing hypertension: Status: Acute Assessment and plan: stable BPs during night. No clonus, 1+ DTRs on LE exam today. Objective Temp Pulse Resp BP Pulse Ox 98.2 F 88 16 129/77 97 06/12/24 08:47 06/12/24 08:47 06/12/24 08:47 06/12/24 08:47 06/12/24 08:47 Laboratory Results ABO/Rh O Positive 06/11/24 21:40 Antibody Screen NEGATIVE 06/11/24 21:40 Vital Signs Reviewed: Yes Objective Narrative Objective Narrative: VE deferred. Will assess cervix after 4th Misoprostol dose. I recommended beg inning oxytocin titration after 4th Misoprostol dose. Pt is agreeable to the plan. Subjective Patient Reports: No new Complaints Interval history since last seen: Pt received 2 doses of oral Misoprostol overnight. Pt reports mild contractions while receiving Misoprostol but now that she is due for the next dose she is without any contractions. Procedure Procedures: Cervical Ripening Cervical Ripening: Misoprostol
--- NOTE | 2024-06-12 16:30 | W.PM.OBNL1 ---
Date of service: 06/12/24 Time of Service: 16:30 Informed Consent Informed Consent: Augmentation of Labor (begin oxytocin infusion. low dose protocol) and Induction of Labor Pelvic Exam Dilation: 0 Effacement (%): 90 station: -3 Cervix Position: mid Consistency: soft (os is closed, puckered.) Contractions Monitor Mode: None Fetus A Monitor: External (US) Heart Rate Baseline: 140 Presentation: Cephalic Variability: Moderate (6-25 BPM) Categories: Category I FHR Rhythm: Regular Characteristics: Normal Accelerations: 15 X 15 Decelerations: None Amniotic Membrane Status: Intact Assessment and Plan Assessment and plan (1) Encounter for induction of labor: Status: Acute Assessment and plan: Begin Oxytocin for augmentation of labor. Objective Temp Pulse Resp BP Pulse Ox 98.6 F 92 H 16 147/88 H 97 06/12/24 15:30 06/12/24 15:27 06/12/24 08:47 06/12/24 15:27 06/12/24 08:47 Laboratory Results ABO/Rh O Positive 06/11/24 21:40 Antibody Screen NEGATIVE 06/11/24 21:40 Subjective Interval history since last seen: s/p 3 doses of Misoprostol since ~ 2300 last evening. Pt feeling some discomfort. OK with proceeding to oxytocin augmentation of labor.
[2024-06-12] MEDS: Lactated Ringers 1,000 ML 125 ML IV (17:02)
[2024-06-12] MEDS: Oxytocin/Normal Saline 30 UNIT/500 ML BAG 2 UNITS IV (17:03)
--- NOTE | 2024-06-12 23:07 | W.PM.OBNL1 ---
Date of service: 06/12/24 Time of Service: 23:08 Informed Consent Informed Consent: Augmentation of Labor (begin oxytocin infusion. low dose protocol) and Induction of Labor Pelvic Exam Dilation: 1 Effacement (%): 90 station: -2 Cervix Position: mid Consistency: soft (firmness at os persists. ) Vaginal Exam Presentation: Cephalic Contractions Monitor Mode: External Contraction Frequency(min): 2 Contraction Duration(sec): 40-50 Intensity: Mild/Moderate Fetus A Monitor: External (US) Heart Rate Baseline: 150 Presentation: Cephalic Variability: Moderate (6-25 BPM) Categories: Category I FHR Rhythm: Regular Characteristics: Normal Accelerations: 15 X 15 Decelerations: None Amniotic Membrane Status: Intact Assessment and Plan Assessment and plan (1) Pre-eclampsia added to pre-existing hypertension: Status: Acute (2) Encounter for induction of labor: Status: Acute Objective Temp Pulse Resp BP Pulse Ox 98.6 F 80 16 140/78 97 06/12/24 21:27 06/12/24 22:29 06/12/24 08:47 06/12/24 22:29 06/12/24 08:47 Laboratory Results ABO/Rh O Positive 06/11/24 21:40 Antibody Screen NEGATIVE 06/11/24 21:40 Vital Signs Reviewed: Yes Objective Narrative Objective Narrative: On cardiac exam 3hrs ago pt was noted to have irreg rate with skipped beat every 10 beats. Subjective Interval history since last seen: More uncomfortable with contractions. Has been using Nitrous Oxide. Requesting epidural. Oxytocin infusion 14mu/min. Interventions Augmentation , Pitocin rate (mU/min): 14
--- NOTE | 2024-06-12 23:17 | ANES.PREOP_ITS ---
General Info Date of Service Date Performed: 06/12/24 Height: 5 ft 3 in Weight: 98.883 kg Body Mass Index (BMI): 38.6 Meds Allergies and Home Medications Allergies Allergy/AdvReac Type Severity Reaction Status Date / Time No Known Allergies Allergy Verified 06/02/24 15:15 Home Medication ?Medication ?Instructions ?Recorded prenat.vits,zac,ypn-jbkg-lwbsa 1 tab PO DAILY 12/21/20 cholecalciferol (vitamin D3) 25 25 mcg PO DAILY #90 tabs 09/17/23 mcg (1,000 unit) tablet (Vitamin D3) folic acid 800 mcg tablet 0.8 mg PO DAILY 10/23/23 aspirin 81 mg tablet,delayed 81 mg PO DAILY 12/03/23 release (Adult Aspirin Regimen) blood sugar diagnostic (FreeStyle #100 ea 12/11/23 Lite Strips) blood-glucose meter (FreeStyle #1 ea 12/11/23 Lite Meter kit) lancets 28 gauge (FreeStyle #100 ea 12/11/23 Lancets) Current Visit Medications: Current Medications Generic Name Dose Route Start Last Admin Trade Name Freq PRN Reason Stop Dose Admin Fentanyl/Ropivacaine 200 ml 06/12/24 23:00 Fentanyl/Ropivacaine 2 Mcg/Ml And 0.1% 200 Ml Cadd Cassette EP DIRECTED EVERETT Ringer's Solution 1,000 mls @ 125 mls/hr 06/12/24 16:30 06/12/24 17:02 IV 125 mls/hr INFUSION EVERETT Administration Oxytocin/Sodium Chloride 30 unit in 500 mls @ 2 mls/hr 06/12/24 16:30 06/12/24 21:25 Pitocin/Normal Saline IV 14 milliunits/min INFUSION EVERETT 14 mls/hr Titration Protocol 2 MILLIUNITS/MIN IV Miscellaneous Supplies 1 each 06/12/24 16:30 Iv Access IV DIRECTED EVERETT Misoprostol 25 mcg 06/11/24 22:00 06/12/24 23:08 Misoprostol 25 Mcg Tab PO Not Given Q4H EVERETT Sodium Chloride 0 ml 06/12/24 16:20 Normal Saline Flush 10 Ml Syr IVP PRN PRN Sodium Chloride 0 ml 06/12/24 20:00 06/12/24 20:40 Normal Saline Flush 10 Ml Syr IVP Not Given BID EVERETT Sodium Chloride 0 ml 06/12/24 16:20 Normal Saline 10 Ml Vial IJ DIRECTED PRN Zolpidem Tartrate 10 mg 06/11/24 22:00 06/12/24 01:20 Zolpidem 5 Mg Tab PO Not Given HS EVERETT PFSH Active Problems Active Problems: Problem Status Onset Code Encounter for induction of labor Acute Z34.90 Pre-eclampsia added to pre-existing hypertension Acute O11.9 Elevated antinuclear antibody (CANDY) level Acute R76.8 Rubella non-immune status, antepartum Acute O09.899, Z28.39 Elevated LFTs Acute R79.89 Elevated TSH Acute R79.89 Stage 1 hypertension Acute I10 History of loop electrical excision procedure (LEEP) Acute Z98.890 Advanced maternal age (AMA) in Acute Fibroid uterus Acute 02/02/15 D25.9 Bicornuate uterus Acute Q51.3 Acute Z34.90 Bleeding in early Acute O20.9 BMI 37.0-37.9, adult Acute Z68.37 Medical History Medical History (Updated 06/12/24 @ 23:21 by Lachelle Cabrales MD) Abnormal Pap smear of cervix Rx with cryotherapy. No LEEP per pt's recall. Early stage of History of infertility Low vitamin D level Oligomenorrhea 70 to 90 days between cyles. Abnormal uterine bleeding (AUB) Migraine (11/29/13) Chlamydial infection (06/15/12) Rx 06/2012 Anxiety Uterine fibroid Intial concern was that pt had bicornuate uterus. 1cm posterior fundal fibroid noted in pelvic u/s 10/2013. Menstrual migraine cyclic with menses and precipitated by anxiety Surgical History Surgical History (Updated 06/12/24 @ 23:21 by Lachelle Cabrales MD) Hx of bilateral breast reduction surgery 2017 Tobacco Smoking/Tobacco Use Status: Never Alcohol Alcohol Intake: former Substance Use Substance use: Never Substance use type: does not use Prental History History 1 Para 0 Hx # Term Pregnancies 0 Multiple births 0 Hx # Pregnancies 0 Ectopic pregnancies 0 AB induced 0 Hx Number of Living Children 0 AB spontaneous 0 Vital Signs and Lab Results Vital Signs Most Recent Vital Signs in EMR: Most Recent Vital Signs Temp Pulse Resp BP Pulse Ox 37.0 C 80 16 140/78 97 06/12/24 21:27 06/12/24 22:29 06/12/24 08:47 06/12/24 22:29 06/12/24 08:47 Lab Results Blood Type / Crossmatch: Antibody Screen NEGATIVE 06/11/24 Complete Blood Count: White Blood Count 9.11 10^3/uL (4.4-10.8) 06/11/24 08:34 Red Blood Count 3.69 10^6/uL (3.93-5.22) L 06/11/24 08:34 Hemoglobin 10.9 g/dL (11.2-15.7) L 06/11/24 08:34 Hematocrit 32.9 % (36.0-46.0) L 06/11/24 08:34 Platelet Count 248 10^3/uL (130-400) 06/11/24 08:34 Complete Metabolic Panel: Sodium 137 mmol/L (136-145) 06/11/24 08:34 Potassium 3.8 mmol/L (3.5-5.1) 06/11/24 08:34 Chloride 104 mmol/L (98-107) 06/11/24 08:34 Carbon Dioxide 24.6 mmol/L (21.0-32.0) 06/11/24 08:34 BUN 6 mg/dL (7-18) L 06/11/24 08:34 Creatinine 0.6 mg/dL (0.55-1.02) 06/11/24 08:34 Est GFR (CKD-EPI 2020) 119.23 (mL/min/1.73m2) 06/11/24 08:34 Calcium 9.0 mg/dL (8.5-10.1) 06/11/24 08:34 Albumin 2.8 g/dL (3.4-5.0) L 06/11/24 08:34 Glucose 95 mg/dL (74-106) 06/11/24 08:34 Liver Function Panel: Alanine Aminotransferase (ALT/SGPT) 24 U/L (14-59) 06/11/24 08: 34 Aspartate Amino Transf (AST/SGOT) 12 U/L (15-37) L 06/11/24 08: 34 Coagulation Panel: No Data to Display Cardiac Panel: No Data to Display Arterial Blood Gas: No Data to Display Venous Blood Gas: No Data to Display Pancreas Panel: No Data to Display Thyroid Panel: No Data to Display Infectious Disease: No Data to Display Blood Cultures: No Data to Display Toxicology Panel: No Data to Display Panel: No Data to Display Anesthesia Assessment and Plan Anesthesia History Personal History: No History of Anesthesia Complications Family History: No Family History of Anesthesia Complications Exercise Tolerance Exercise Tolerance: Metabolic Equivalents>4 Pertinent Negatives Pertinent Negatives: No Symptoms of GERD, No Major Cardiovascular Symptoms or Complaints and No Major Pulmonary Symptoms or Complaints Cardiac & Pulmonary Exam Cardiac Exam: Normal S1/S2 Heart Sounds Pulmonary Exam: Clear Bilateral Breath Sounds Implantable Cardiac Device Does patient have a Pacemaker or an ICD?: No Airway Exam Known Difficult Airway: No Mallampati Class: 3 Mouth Opening: Normal (> 3cm) Thyromental Distance: Greater than 3 cm Neck Range of Motion: Full ROM Neck Circumference: Normal Teeth Condition: Normal Dentition ASA Classification ASA Score: ASA 2 Emergency Case?: No NPO Status NPO Status: Full Stomach () Status Status: Confirmed Anesthesia Plan Resuscitation Status: Full Code Anesthesia Technique: Labor Epidural Airway Planned: Natural Airway Monitors Used: Standard Monitors
[2024-06-12] MEDS: FentaNYL/ROPIvacaine 2 mcg/ml and 0.1% 200 ML CADD Cassette EP (23:48)
[2024-06-12] MEDS: Bupivacaine 0.25% Pres-Free 10 ML VIAL EP (23:48)
[2024-06-12] MEDS: fentaNYL 100 MCG/2 ML VIAL EP (23:49)
[2024-06-13] VITALS (69 sets, daily range): BP systolic 107–172; BP diastolic 63–98; PULSE 85–148; RESP 12–20; TEMP 36.7–37.3; O2SAT 95–100
--- NOTE | 2024-06-13 00:19 | ANES.NEUR_ITS ---
Epidural/Spinal Catheter Date Performed: 06/13/24 Procedure Start: 23:39 Procedure Stop: 00:21 Requesting Provider: Lachelle Cabrales Procedure Location: Obstetrics Reason Performed: Labor Epidural Standard Monitors Applied: Blood Pressure, SpO2 and See EMR for corresponding vital signs Patient Position: Sitting Sedation Given (Indicate Dose Given): No Sedation given Patient Mental Status: Awake Sterility: Hand Hygiene, Surgical Cap, Surgical Mask, Sterile Gloves, Sterile Drape/Sheet and Chlorhexidine Procedure Location: L3-L4 Interspace Epidural Needle: Tuohy 18 Gauge Needle Length: 3.5 Inch Needle Approach: Midline (with right hand angle) Epidural Procedure: Skin Prepped, Sterile Drape Placed, 1% Lidocaine to skin and subcutaneous tissue with 25G needle, Tuohy Needle placed, ZOEY to Saline Used, Epidural Catheter Placed, Negative Heme, Negative CSF Flow and Tuohy Needle Removed Catheter Placed?: Catheter Placed Test Dose (Indicate Dose Given): 3ml 1.5% Lid ocaine with 1:200K Epinephrine Given and Negative Test Dose Loss of Resistance Depth (cm): 7 Catheter depth at skin (cm): 13 Dressing: Sorbaview Dressing Placed and Mastisol Used Epidural Provider Bolus (Indicate Dose Given): Total bolus dose given in 3-5 ml divided doses and Total Bupivacaine 0.25% Given (ml) Dose:: 5 mL Additives (Indicate Dose Given ): Fentanyl PF Dose:: 100 mcg Infusion Medication: Medication Infusion Began Medication Infusion: Ropivacaine 0.1% with Fentanyl 2mcg/ml Maintenance Infusion Rate (ml/hour): 10 PCEA Bolus Dose (ml): 5 Post Procedure Pain score (0-10): 0 Block Level: N/A Paresthesia: None Ultrasound: Not Used Number of Attempts (See previous attempts in note section): 3 Procedure Tolerated: No Complications and Patient tolerated well Procedure Outcome: Successful Procedure Comment:: 2 attempts at L2-3, bone contacted despite repositioning 3rd attempt at L3-4 with success after angling needle hub toward the right a bit. Catheter threaded smoothly, good results. Performed By: Rebeca Borrego
[2024-06-13] MEDS: Lactated Ringers 1,000 ML 125 ML IV ×2 (01:10→10:20)
--- NOTE | 2024-06-13 01:20 | W.PM.OBNL1 ---
Date of service: 06/13/24 Time of Service: :20 Informed Consent Informed Consent: Augmentation of Labor (begin oxytocin infusion. low dose protocol) and Induction of Labor Pelvic Exam Dilation: 2 Effacement (%): 90 station: -2 Cervix Position: mid Consistency: medium Vaginal Exam Presentation: Cephalic Contractions Monitor Mode: External Contraction Frequency(min): 3 Contraction Duration(sec): 40 Intensity: Mild/Moderate Fetus A Monitor: External (US) Heart Rate Baseline: 150 Presentation: Cephalic Variability: Moderate (6-25 BPM) Categories: Category I FHR Rhythm: Regular Characteristics: Normal Accelerations: 15 X 15 Decelerations: None Amniotic Membrane Status: Ruptured Rupture Method: Artifical () Amniotic Fluid: Clear Amount: copious Date of Membrane Rupture: 06/13/24 Time of Membrane Rupture: Assessment and Plan Assessment and plan (1) Encounter for induction of labor: Status: Acute Assessment and plan: Continue current managment (2) Pre-eclampsia added to pre-existing hypertension: Status: Acute Assessment and plan: BP stable. No H/A. Objective Temp Pulse Resp BP Pulse Ox 98.6 F 96 H 16 157/85 H 99 06/12/24 21:27 06/13/24 01:03 06/13/24 00:30 06/13/24 00:50 06/13/24 01:03 Laboratory Results ABO/Rh O Positive 06/11/24 21:40 Antibody Screen NEGATIVE 06/11/24 21:40 Objective Narrative Objective Narrative: IUPC placed along with FSE. Will follow contraction pattern and FHR. Continue Oxytocin augmentation low dose protocol Subjective Interval history since last seen: Epidural successfully placed for labor analgesia. Pt comfortable.
--- NOTE | 2024-06-13 06:59 | W.PM.OBNL1 ---
Date of service: 06/13/24 Time of Service: 07:01 Informed Consent Informed Consent: Augmentation of Labor (begin oxytocin infusion. low dose protocol) and Induction of Labor Pelvic Exam Dilation: 4 Effacement (%): 100 station: 0 Cervix Position: mid Consistency: soft Vaginal Exam Presentation: Cephalic Contractions Monitor Mode: Internal Contraction Frequency(min): 4 Contraction Duration(sec): 50 IUPC resting tone (mmHg): 20 IUPC peak pressure (mmHg): 80 IUPC Fairbank units: 160 Fetus A Monitor: Internal (FSE) Heart Rate Baseline: 150 Presentation: Cephalic Variability: Moderate (6-25 BPM) Categories: Category II CategoryII Plan of Care: Team Huddle, Reassess and Continuous Monitoring/Observation FHR Rhythm: Regular Characteristics: Normal Accelerations: 15 X 15 Decelerations: Early Recurrence: Intermittent Assessment Note: Pt with epidural in place for labor analgesia. In past 12 hrs pt has had oxytocin infusion titrated to max of 20mu/min with adequate [place]bank units until last hour. Cervix has changed from 1cm to 4cm and 100% effacement. Early decelerations assoc with contractions for past hour. I spoke with pt and her regarding my concerns about rate of cervical change and descent of vertex. I recommended continued increase in rate of Oxytocin infusion and continued observation. Pt agreeable to the plan Assessment and Plan Assessment and plan (1) Encounter for induction of labor: Status: Acute Assessment and plan: Slow cervical dilation and descent of vtx. Will increase concentration of Oxytocin and reassess in 1-2 hrs. (2) Pre-eclampsia added to pre-existing hypertension: Status: Acute Objective Temp Pulse Resp BP Pulse Ox 98.3 F 97 H 16 132/78 99 06/13/24 05:14 06/13/24 06:14 06/13/24 00:30 06/13/24 06:14 06/13/24 01:03 Laboratory Results ABO/Rh O Positive 06/11/24 21:40 Antibody Screen NEGATIVE 06/11/24 21:40 Vital Signs Reviewed: Yes Subjective Patient Reports: No new Complaints Interval history since last seen: Comfortable with epidural in place. No focal uterine tenderness.
--- NOTE | 2024-06-13 10:13 | W.PM.OBNL1 ---
Date of service: 06/13/24 Time of Service: 10:14 Informed Consent Informed Consent: Augmentation of Labor (begin oxytocin infusion. low dose protocol) and Induction of Labor Pelvic Exam Dilation: 10 Effacement (%): 100 station: +1 Position: OP Contractions Monitor Mode: Internal Contraction Frequency(min): 4 Contraction Duration(sec): 50 Fetus A Monitor: Internal (FSE) Heart Rate Baseline: 145 Presentation: Cephalic Variability: Moderate (6-25 BPM) Categories: Category I FHR Rhythm: Regular Characteristics: Normal Accelerations: 15 X 15 Decelerations: Early Recurrence: Intermittent Amniotic Membrane Status: Ruptured Assessment and Plan Assessment and plan (1) Encounter for induction of labor: Status: Acute Assessment and plan: will begin maternal expulsive efforts. Objective Temp Pulse Resp BP Pulse Ox 98.4 F 111 H 12 146/89 H 97 06/13/24 08:32 06/13/24 10:12 06/13/24 07:26 06/13/24 10:12 06/13/24 07:26 Laboratory Results ABO/Rh O Positive 06/11/24 21:40 Antibody Screen NEGATIVE 06/11/24 21:40
[2024-06-13] MEDS: FentaNYL/ROPIvacaine 2 mcg/ml and 0.1% 200 ML CADD Cassette EP (10:30)
--- NOTE | 2024-06-13 11:25 | PLAC_PTH ---
PATIENT: Kandice Durán LOC: OBS U#:[id number] AGE/SX: 34/F ROOM: OBS.303 RE06/11/[address]: Lachelle Cabrales : 1990 BED: A DIS: 06/14/2024 SPEC #: [id number] RECD: 06/15/24 12:42 STATUS: PENNY REQ #: [id number] CHERELLE: 06/13/24 11:[address]: Lachelle Cabrales DEPT: Surgical Specimen RECD BY: Ny Ortiz ENTERED: 06/15/24 12:43 SP TYPE: PLAC OTHR DR: Luis Asencio Tissues: 1 - PLACENTA (3RD TRIMESTER) Procedures: GROSS AND MICRO LEVEL 5 Comments: [id number]
[2024-06-13] MEDS: Acetaminophen 325 MG TAB 650 MG PO ×2 (13:59→20:02)
[2024-06-13] MEDS: Docusate Sodium 100 MG CAP PO (13:59)
[2024-06-13] MEDS: Ibuprofen 600 MG TAB PO ×2 (13:59→20:02)
[2024-06-13] MEDS: Hamamelis Leaf/Glycerin 100 EACH BOX PR (14:00)
[2024-06-13] MEDS: Dibucaine 1% 28 GM TUBE TP ×2 (14:00→22:03)
--- NOTE | 2024-06-13 17:55 | ANES.POST_ITS ---
Postoperative Evaluation Date, Time and Location Date Performed: 06/13/24 Time Performed: 12:16 Patient Location: Obstetrics Vital Signs Most Recent Imported Vital Signs: Most Recent Vital Signs Temp Pulse Resp BP Pulse Ox 36.7 C 126 H 18 131/93 H 97 06/13/24 16:05 06/13/24 16:05 06/13/24 17:00 06/13/24 16:05 06/13/24 16:05 Pain Score Most Recent Pain Score: Most Recent Pain Score Pain Level [Abdomen] 4 06/13/24 16:05 Pain Level 6 06/13/24 13:59 Assessment Mental Status: Awake (Alert & Oriented to Patient Baseline) Airway and Respiratory Function: Patent airway with normal (patient baseline) respiratory exam Cardiovascular Function: Hemodynamically Stable Hydration Status: Adequately Hydrated Nausea & Vomiting: No Nausea or Vomiting Pain: Pain is Moderate or Severe Postoperative Pain Management: Pain being a ddressed with medication Peripheral Nerve Block: Patient did not receive a nerve block Postoperative Comments:: Report from Dr. Cabrales and RN state epidural worked perfectly for patient and doing well. Immediately post delivery, giving patient privacy.
[2024-06-14] MEDS: Ibuprofen 600 MG TAB PO ×2 (02:44→08:50)
[2024-06-14] MEDS: Acetaminophen 325 MG TAB 650 MG PO ×2 (02:44→08:50)
[2024-06-14] MEDS: Docusate Sodium 100 MG CAP PO (08:50)
--- NOTE | 2024-06-14 10:46 | W.PM.OBDISCH ---
Date of service: 06/14/24 Time of Service: 10:46 DS: Diagnosis Discharge Diagnosis (1) Encounter for induction of labor: Status: Acute (2) Vaginal delivery: Status: Acute (3) Pre-eclampsia added to pre-existing hypertension: Status: Acute Discharge Plan Disposition Patient Disposition: Home Condition: Improving Discharge Details Reason For Visit: induction Admit Date/Time: 06/11/24 20:33 Admit Provider: Lachelle Cabrales Attending Provider: Lachelle Cabrales Primary Care Provider: Luis Asencio [facility] Course Hospital Course: Pt is a 34yo G1 now P1 female who was admitted to at 38w4d E[facility] for IOL. Pt developed preeclampsia superimposed on chronic hypertension and was advised to undergo an induction of labor. She received Misoprostol followed by Oxytocin augmentation of labor and went on to deliver a viable female who will be named Janet on 06/13/24. Pt had an epidural for labor analgesia. She sustained a second degree perineal laceration and superficial bilateral labia lacerations that were repaired at the time of delivery. Pt was discharged to home on PPD1. She was pumping breast milk and formula feeding. She will be seen in 2 weeks for a check in the [facility]. Acetaminophen and Ibuprofen for analgesia. Home Meds and New Rx's Prescriptions: Continued cholecalciferol (vitamin D3) [Vitamin D3] 25 mcg (1,000 unit) tablet 25 mcg PO DAILY Qty: 90 4RF Discontinued folic acid 800 mcg tablet 0.8 mg PO DAILY aspirin [Adult Aspirin Regimen] 81 mg tablet,delayed release (DR/EC) 81 mg PO DAILY Rx Instructions: 1 tablet QOD alternative with 2 tablets QOD (DME) blood-glucose meter [FreeStyle Lite Meter] Kit See Rx Instructions .Route Qty: 1 0RF Rx Instructions: As directed (DME) FreeStyle Lite Strips Strip See Rx Instructions .Route Qty: 100 3RF Rx Instructions: QID (DME) lancets [FreeStyle Lancets] 28 gauge misc See Rx Instructions .Route Qty: 100 4RF Rx Instructions: QID No Action prenat.vits,zac,bkw-tqlf-efbkw Tablet 1 tab PO DAILY Discharge Instructions Stand Alone Forms: BC Instructions, BC Post Vaginal Deliver Activity:: Activity as Tolerated Equipment/Supplies:: No Equipment Needed Diet:: As Tolerated Discharge Orders Discharge Orders: Discharge Order (Routine); Ordered 06/14/24 Ordered By: Lachelle Cabrales OB:DS Summary Summary Vaginal Delivery Method: Spontaneaous Episiotomy Description: None Laceration Description: Perineal (second degree.) and Other (bilateral labial) Laceration Extension: N/A complications OB DS: none Contraception Discussed Contraception Discussed: No, Art Infant Gender-Baby A: Female weight: 7 lb 2.288 oz Disposition of Baby A: Home Status at Discharge Functional status at discharge: independent ambulation Overall status at discharge: patient is progressing back to baseline Mental Status: mental status grossly normal Speech and Movement: speech and movement normal Mood: congruent mood Affect: normal affect Quality:SDOH Health Related Social Needs: No Data to Display Exam Physical Exam Vital signs: Temp Pulse Resp BP Pulse Ox 98.3 F 111 H 18 128/93 H 97 06/13/24 19:51 06/13/24 19:51 06/13/24 19:51 06/13/24 19:51 06/13/24 19:51 Vital Signs Reviewed: Yes Notable Details: BP stable Constitutional Constitutional: no acute distress HEENT Exam HEENT Exam: Normal Neck Exam Neck Exam: Normal Respiratory Exam Respiratory Exam: Normal Cardiovascular Exam Cardiovascular Exam: Normal (HHR rate and rhythm.) Abdominal Exam Comments: Soft nontender Fundal Exam Fundus: Below Umbilicus and Firm Rectal Exam Rectal Exam: Not Done Comments: Perineal exam performed: No induration or ecchymosis. Back/Spine/Pelvis Exam Back Exam: Not Done Skin Exam Skin Exam: Normal Neurological Exam Neurological Exam: Normal Psychiatric Exam Psychiatric Exam: Normal PFSH All Active Problems (Updated 06/14/24 @ 10:47 by Lachelle Cabrales MD) Vaginal delivery (Acute) Encounter for induction of labor (Acute) Pre-eclampsia added to pre-existing hypertension (Acute) Elevated antinuclear antibody (CANDY) level (Acute) Rubella non-immune status, antepartum (Acute) Elevated LFTs (Acute) Elevated TSH (Acute) Stage 1 hypertension (Acute) Advanced maternal age (AMA) in (Acute) Fibroid uterus (Acute 02/02/15) 1cm posterior fundal fibroid. (Acute) Bleeding in early (Acute) BMI 37.0-37.9, adult (Acute) Medical History (Updated 06/14/24 @ 10:47 by Lachelle Cabrales MD) Abnormal Pap smear of cervix Rx with cryotherapy. No LEEP per pt's recall. Early stage of History of infertility Low vitamin D level Oligomenorrhea 70 to 90 days between cyles. Abnormal uterine bleeding (AUB) Migraine (11/29/13) Chlamydial infection (06/15/12) Rx 06/2012 Anxiety Uterine fibroid Intial concern was that pt had bicornuate uterus. 1cm posterior fundal fibroid noted in pelvic u/s 10/2013. Menstrual migraine cyclic with menses and precipitated by anxiety Surgical History (Updated 06/12/24 @ 23:21 by Lachelle Cabrales MD) Hx of bilateral breast reduction surgery 2016 Family History (Updated 12/03/23 @ 13:46 by Nanci Licea CNM) Father Personal history of malignant neoplasm colorectal CA Maternal Cousin Diabetes Other Bicornuate uterus Social History Smoking/Tobacco Use Status: Never Smoking risk assessment performed?: Yes Alcohol Intake: former Drug use: Never Substance use type: does not use Household members: spouse and other Details: [employer] [facility] Housing: house Communication Needs: None Education Level: college current occupation: Special scheduler [employer] Sexually active: Yes Current gender identity: female What type of physical activity do you participate in: regular exercise Frequency: 5-6 times per week Seatbelt use: always Helmet use: Yes Drive intox or ride w/intox driver lifter of sanitation truck: No Do you feel safe at home: Yes Do you feel safe in your relationship?: Yes Female Reproductive History Menstrual control method: none History History 1 Para 1 Hx # Term Pregnancies 1 Multiple births 0 Hx # Pregnancies 0 Ectopic pregnancies 0 AB induced 0 Hx Number of Living Children 1 AB spontaneous 0 Past Pregnancies Del. Date GA/Weeks # Preg Succ Route Wgt Sex Labor Lgth Anesthesia Location Prov Complic 06/13/24 38 No Yes vaginal 7 lb 2 oz Female aoc Delivery Date: 06/13/24 Last Updated by: Lachelle Cabrales MD IOL for preeclampsia imposed on chronic hypertension. DS: Data Vitals/I&O Vitals and I&O: Vital Signs Temperature 98.3 F 06/13/24 19:51 Temperature 98.6 F 06/11/24 20:00 Temperature Source Oral 06/13/24 19:51 Pulse 111 H 06/13/24 19:51 Pulse Rhythm Irregular 06/14/24 08:00 Respiratory Rate 18 06/13/24 19:51 Respiratory Depth Normal 06/14/24 08:00 Blood Pressure 128/93 H 06/13/24 19:51 Blood Pressure Mean 104 06/13/24 19:51 Pulse Oximetry 97 06/13/24 19:51 Oxygen Delivery Method Nasal Cannula 06/11/24 19:54 Oxygen Flow Rate 0 06/11/24 19:54 Pain Level 4 06/13/24 19:51 Intake & Output 06/13/24 06/13/24 06/14/24 11:59 23:59 11:59 Intake Total 2158.067 / 2699.734 541.667 / 2699.734 541.667 / 541.667 Output Total 1625 / 2205 580 / 2205 800 / 800 Balance 533.067 / 494.734 -38.333 / 494.734 -258.333 / -258.333 Intake: IV 2158.067 / 2699.734 541.667 / 2699.734 541.667 / 541.667 Output: Urine 1625 / 2205 580 / 2205 800 / 800 Other: Urine Color Yellow Yellow Yellow Urine Appearance Clear Clear Urine Odor None None Comment St cath Voiding Methods Toilet
[2024-06-14 11:00] VITALS: BP 142/93; PULSE 90; RESP 16; TEMP 36.7; O2SAT 99
--- NOTE | 2024-06-14 11:06 | OBVDS_ITS ---
Date of service: 06/14/24 Time of Service: 11:06 OB Labor/ Delivery Information Baby A Delivery Delivery Method: Spontaneaous Presentation: Cephalic Cephalic Position: Vertex Breech Position: N/A Cord Description-Baby A: 3 Vessels Cord Description Comment: no nuchal cord Amniotic Fluid: Clear Estimated Blood Loss: 200 Delivery Outcome: Liveborn Complications: none Transferred: Remains with Mother Providers Doctor: Lachelle Cabrales International Student Advisor: Rebeca Borrego Nurse: Moises Clark Nurse: Rashmi Buitrago RN Labor/Delivery Information Number of Babies in Womb: 1 Steroids Given: None Reason Steroids Not Administered: N/A Group Beta Strep: Negative Antibiotics Administered: No Rubella Status: Nonimmune Blood Type: O+ Varicella Immunity: Immune Medication in Delivery: none Born En Route: No Maternal Complications: Other Shoulder Dystocia: No Stages of Labor Complete Dilatation Date: 06/13/24 Complete Dilatation Time: 09:18 ROM Baby A: 06/13/24 ROM Baby A: 01:15 ROM Total Time- Baby A: [id number] Delivery Date-Baby A: 06/13/24 Infant Delivery Time-Baby A: 11:17 Labor Stage 2 Duration: 1 hours and 59 minutes Placenta Delivery Date-Baby A: 06/13/24 Placenta Delivery Time-Baby A: 11:25 Labor-Stage 3 Duration: 8 minutes Placenta Cultured: No Placenta Status: Delivered Baby A Infant Gender: Female Gestational Status: Early Term (37-38.6 wks) Gestational Age in Weeks/Days: 38 Weeks and 6 Days weight: 7 lb 2.288 oz Length-Baby A: 18.5 in Head Circumference-Baby A: 5.61 in Score-1 Minute Interval(Baby A) Heart Rate-1 minute: 100 BPM or Greater Respiratory Effort- 1 minute: Spontaneous/Strong Cry Muscle Tone-1 minute: Active Movement Reflex Response-1 minute: Prompt Response Color-1 minute: Bluish Hands or Feet Total Score-1 minute: 9 Score-5 Minute Interval(Baby A) Heart Rate- 5 minute: 100 BPM or Greater Respiratory Effort-5 minute: Spontaneous/Strong Cry Muscle Tone-5 minute: Active Movement Reflex Response-5 minute: Prompt Response Color-5 minute: Bluish Hands or Feet Total Score- 5 minute: 9 Note: Placenta path positive sent to pathology secondary to chronic hypertension with superimposed preeclampsia. Patient sustained bilateral labial lacerations and a second-degree perineal laceration. Both labial lacerations were reapproximated with a subcuticular suture. Second-degree laceration was repaired in the usual fashion.
== END 2024-06-14 15:35 | disposition home or self-care (01) | DRG 806 ==
PROVIDERS: Admitting Provider Obstetrics & Gynecology Gynecology; PCP Student in an Organized Health Care Education/Training Program; Visit Provider Obstetrics & Gynecology Gynecology
DX: O11.4 Pre-existing hypertension with pre-eclampsia, complicating childbirth (principal); O99.354 Diseases of the nervous system complicating childbirth; Z37.0 Single live birth; O34.03 Maternal care for unspecified congenital malformation of uterus, third trimester; Q51.3 Bicornate uterus; O34.13 Maternal care for benign tumor of corpus uteri, third trimester; O99.344 Other mental disorders complicating childbirth; F41.9 Anxiety disorder, unspecified; O70.1 Second degree perineal laceration during delivery; Z3A.39 39 weeks gestation of pregnancy; G43.909 Migraine, unspecified, not intractable, without status migrainosus
CPT/HCPCS: 86850; 86900; 86901; 88307; J0665; J2003; J3010; J3490

== ENCOUNTER 2024-06-18 11:27 | Outpatient (CLI) | payer BC, SELFPAY ==
[2024-06-18 12:00] VITALS: BP 140/101; RESP 18; TEMP 36.4
[2024-06-18 12:02] LABS: Absolute Basophil Count 0.04 10^3/uL (0.0-0.2); Absolute Eosinophil Count 0.08 10^3/uL (0.0-0.7); Absolute Lymphocyte Count 1.59 10^3/uL (1.2-3.4); Absolute Monocyte Count 0.43 10^3/uL (0.1-0.8); Absolute Neutrophil Count 6.67 10^3/uL (1.2-6.7); Basophils % 0.4 %; Eosinophils % 0.9 %; HCT 27.9 % (36.0-46.0); HGB 9.3 g/dL (11.2-15.7); Immature Grans % 1.1 %; Lymphocytes % 17.8 %; MCH 29.8 pg (27.0-33.0); MCHC 33.3 % (32.0-36.0); MCV 89 fL (80-95); Monocytes % 4.8 %; Platelet Count 358 10^3/uL (130-400); RBC 3.12 10^6/uL (3.93-5.22); RDW 13.2 % (11.7-14.6); RDW-SD 43.7 fL; WBC 8.91 10^3/uL (4.4-10.8)
[2024-06-18 12:21] LABS: COMMENT (LAB VIEW ONLY) 28.16 mg/dL; PROTEIN 28.8 mg/dL; Prot/Crea Ur Ratio 1.02
[2024-06-18 12:27] LABS: ALT 55 U/L (14-59); AST 33 U/L (15-37); Alkaline Phosphatase 100 U/L (46-116); Anion Gap 9.1 mmol/L (3-11); BUN 12 mg/dL (7-18); CO2 25.9 mmol/L (21.0-32.0); CREATININE 0.9 mg/dL (0.55-1.02); Calcium 9.4 mg/dL (8.5-10.1); Chloride 102 mmol/L (98-107); Estimated GFR 84.97 (mL/min/1.73m2); Glucose 100 mg/dL (74-106); Potassium 4.1 mmol/L (3.5-5.1); Sodium 137 mmol/L (136-145); Total Protein 7.4 g/dL (6.4-8.2)
[2024-06-18 12:30] VITALS: BP 142/101; PULSE 100; RESP 18
[2024-06-18 13:10] VITALS: BP 136/91; PULSE 99; RESP 18
== END 2024-06-18 14:00 ==
LOC: BCD 11:28 → OBS 11:33
PROVIDERS: Obstetrics & Gynecology; PCP Student in an Organized Health Care Education/Training Program; Visit Provider Obstetrics & Gynecology
DX: O10.03 Pre-existing essential hypertension complicating the puerperium (principal)
CPT/HCPCS: 36415; 80053; 99211; 82565; 84156; 85025

== ENCOUNTER 2024-08-03 12:11 | Outpatient (REF) | payer BC, SELFPAY ==
--- NOTE | 2024-08-03 12:00 | PAPFT_PTH ---
PATIENT: Kandice Durán LOC: [facility] U#:[id number] AGE/SX: 34/F ROOM: RE08/03/[address]: Lachelle Cabrales : 1990 BED: DIS: 08/03/2024 SPEC #: [id number] RECD: 08/03/24 12:59 STATUS: PENNY REQ #: [id number] CHERELLE: 08/03/24 12:[address]: Lachelle Cabrales DEPT: [facility] Cytology RECD BY: Ny Ortiz ENTERED: 08/03/24 12:59 SP TYPE: PAPFT OTHR DR: Luis Asencio Tissues: 1 - CX/ENDOCX FOR PAP SMEARS Procedures: PAP THIN PREP/[facility] Screening HPV DNA PROBE Comments: [id number] (HPV 16 & 18/45)
== END 2024-08-03 12:12 | disposition home or self-care (01) ==
LOC: LBN 12:11
PROVIDERS: PCP Student in an Organized Health Care Education/Training Program; Visit Provider Obstetrics & Gynecology Gynecology
DX: O90.81 Anemia of the puerperium (principal); Z39.2 Encounter for routine postpartum follow-up
CPT/HCPCS: 88142; 87624